=== PATIENT | male | born 1965 | race Caucasian/White ===

== ENCOUNTER 2023-01-26 07:46 | Day surgery (SDC) | payer OTHER ==
[~2023-01-26] VITALS: Ht 208.3 cm; Wt 82.8 kg
[~2023-01-26 07:46] MED LIST: ADVIL200 M1 PO; ALLEGRA ALLERGY60 MG PO; SPIRIVA RESPIMAT4 G1 INH
[2023-01-26 08:03] VITALS: BP 130/86
--- NOTE | 2023-01-26 11:13 | NUR ---
01/26/23 1113 Amanda Kimble 1109-PT TO PACU IN LL POSITION. EYES CLOSED. DOES NOT RESPOND TO VERBAL OR TACTILE STIMULI. BREATHING EASY AND UNLABORED WITH ORAL AIRWAY IN PLACE. SPO2 >95% ON 6 L O2 VIA SIMPLE MASK. 1112-PT CONTINUES TO SLEEP WITH ORAL AIRWAY IN PLACE. DOES NOT RESPOND TO VERBAL OR TACTILE STIMULI. BREATHING EASY AND UNLABORED.SPO2 >95% ON 6 L O2 VIA SIMPLE MASK.
[2023-01-26 12:05] VITALS: BP 135/90
--- NOTE | 2023-01-27 08:27 | OR ---
[facility] [address] [place], [place] [address] Signed DATE OF OPERATION: 01/26/2023 SURGEON: Leyda Peters MD PREOPERATIVE DIAGNOSES: 1. Sister with a history of colonic polyps starting at age 45. 2. Maternal uncle with likely sigmoid colon cancer. POSTOPERATIVE DIAGNOSES: 1. A 4 mm rectal polyps x3 at 8 cm. 2. A 4 mm cecal polyp. 3. A 5 mm sessile polyp in proximal right colon. 4. Minimal internal hemorrhoids. PROCEDURE: Colonoscopy with hot biopsy. ESTIMATED BLOOD LOSS: None. INDICATIONS: Leyda is a 57-year-old gentleman, who decided to establish with his primary care provider. He has been to the office a couple of times. He was asked to see me for his initial screening colonoscopy. He said his sister had a colonoscopy initially at age 45. She was having GI issues at the time after her parents . She had a polyp removed at that time. She went back 10 years later at the age of 54. She was told she had a pre-cancerous polyp removed. She was then asked to come every five years. In addition, the family is quite certain that her maternal uncle of a sigmoid colon cancer that was never diagnosed. Apparently, he was pooping blood and declined medical care. Leyda said he has no lower GI complaints. In the office, I had given him a pamphlet on colonoscopy. He understands the nature of the test. There is risk including, but not limited to gas bloating, crampy abdominal pain, bleeding, perforation requiring surgery, and missed diagnosis. We also reviewed the written instructions for the bowel prep line by line. He also understands the need for IV conscious sedation. He had expressed understanding and wished to proceed. DESCRIPTION OF PROCEDURE: Leyda was seen in the preop area. There was concern by our nursing staff that he was having bigeminy and trigeminy. An EKG was done, when it finally captured he was in sinus rhythm with frequent PVCs. I was in another case. In the meantime, our Electronically Signed By: LEYDA PETERS MD 01/27/23 0827 PATIENT NAME: LEYDA BARNARD OPERATIVE REPORT DATE OF : 63 REPORT #: [id number] PHYSICIAN: LEYDA PETERS MD PCP: ACE PLUNKETT MD REPORT IS CONFIDENTIAL AND NOT TO BE RELEASED WITHOUT AUTHORIZATION [facility] [address] [place] [id number] Signed anesthesia providers had looked at that and reviewed his chart. They felt he would probably be fine today to have his colonoscopy with the help of monitored anesthesia care. He has also had a long history of smoking since 1982. I had reviewed that with Leyda and he needs to followed up with his primary care provider. After this, we had taken Leyda into our endoscopy suite and placed in a left lateral decubitus position. Again, he was having normal sinus rhythm with frequent PVCs. He was given monitored anesthesia care to include propofol per our nurse caption writer. A digital rectal exam was performed and he has good sphincter tone, really no external hemorrhoids or internal masses. His prostate was fairly enlarged, prominent on both sides. After this, the adult colonoscope was introduced, advanced all around into the cecum under direct visualization of camera. It took a little extra sedation and abdominal compression in order to get the camera directly into the cecum itself. His prep was quite excellent to see the appendiceal orifice, ileocecal valve. The scope was then slowly withdrawn. We took the polyp about the base of the cecum with a hot biopsy forceps. He has a 5-7 mm sessile polyp on the fold just distal to the ileocecal valve. We biopsied that and destroyed it completely with hot biopsy forceps. He also had several small polyps at 8 cm in the rectum, removed with hot biopsy forceps. There was no diverticulosis. Upon retroflexion of scope, he has minimal internal hemorrhoid tissue. After this, the gas was suctioned out and colonoscope removed. Leyda tolerated the procedure quite well. RECOMMENDATIONS: I will see Leyda back in my office in 7 to 14 days to review his results. He needs to review the EKG and his long history of smoking with his primary care provider. He might review the prostate exam as well. Leyda Peters MD ALB/MODL /[id number] cc: MD Ace Olivares MD Patient Chart Electronically Signed By: LEYDA PETERS MD 01/27/23 0827 PATIENT NAME: LEYDA BARNARD OPERATIVE REPORT DATE OF : 63 REPORT #: [id number] PHYSICIAN: LEYDA PETERS MD PCP: ACE PLUNKETT MD REPORT IS CONFIDENTIAL AND NOT TO BE RELEASED WITHOUT AUTHORIZATION [address] [address] Signed Copies: LEYDA PETERS MD, ROBERT D DMD ~ Electronically Signed By: LEYDA PETERS MD 01/27/23 0827 PATIENT NAME: LEYDA BARNARD OPERATIVE REPORT DATE OF : 63 REPORT #: [id number] PHYSICIAN: LEYDA PETERS MD PCP: ACE PLUNKETT MD REPORT IS CONFIDENTIAL AND NOT TO BE RELEASED WITHOUT AUTHORIZATION
--- NOTE | 2023-01-27 15:11 | PATH ---
[facility] [address] [place], [place] [address] Signed SPECIMEN(S): A RECTAL POLYP AT 8 CM SPECIMEN(S): B CECUM POLYP SPECIMEN(S): C PROXIMAL ASCENDING/RIGHT COLON POLYP SPECIMEN SOURCE: A. RECTAL POLYP AT 8 CM B. CECUM POLYP C. PROXIMAL ASCENDING/RIGHT COLON POLYP CLINICAL HISTORY: Preop: Family history of polyps and colon CA. Postop: Polyps and enlarged hemorrhoids. FINAL PATHOLOGIC DIAGNOSIS: A. Rectal polyp at 8 cm: - Tubular adenoma (one fragment). - Hyperplastic polyps (multiple fragments). B. Cecum polyp: - Serrated polyp / adenoma (two fragments). C. Proximal ascending / right colon polyp: - Tubular adenoma (two fragments). JVR:[facility]:C2NR MICROSCOPIC EXAMINATION: Histologic sections of all submitted blocks are examined by light microscopy. These findings, together with the gross examination, support the pathologic diagnosis. GROSS DESCRIPTION: A. The specimen, labeled and designated "Mariela, rectal polyp at 8 cm," is received in formalin and consists of four benton soft tissue fragments, ranging from 0.2-0.6 cm. Entirely submitted in (A1). B. The specimen, labeled and designated "Wrightson, cecum polyp," is received in formalin and consists of two benton soft tissue fragments, ranging from 0.1-0.3 cm. Entirely submitted in (B1). C. The specimen, labeled and designated "Wrightson, proximal ascending/right colon polyp," is received in formalin and consists of two benton soft tissue fragments, ranging from 0.2-0.3 cm. Entirely submitted in (C1). VB (under the direct supervision of a pathologist) The Gross Description was prepared using a voice recognition system. The report PATIENT NAME: LEYDA BARNARD PATHOLOGY DATE OF : 63 REPORT #: [id number] PHYSICIAN: MATTHEW PATHOLOGY PCP: KEIRA PLUNKETT MD REPORT IS CONFIDENTIAL AND NOT TO BE RELEASED WITHOUT AUTHORIZATION [facility] [address] [facility] [place], [place] [address] Signed was reviewed for accuracy; however, sound-alike word errors, addition and/or deletions may occur. If there is any question about this report, please contact Client Services. PERFORMING LABORATORY: Technical component was performed by [facility], [address] [place] [address] (CLIA# [id number]). Professional interpretation was performed by [facility] - [facility], [address] [place] [id number] (CLIA#: [id number]). Diagnostician: Kleber Ferguson MD Pathologist Electronically Signed 01/27/2023 Copies: ~ PATIENT NAME: LEYDA BARNARD PATHOLOGY DATE OF : 63 REPORT #: [id number] PHYSICIAN: [facility] PCP: KEIRA PLUNKETT MD REPORT IS CONFIDENTIAL AND NOT TO BE RELEASED WITHOUT AUTHORIZATION
--- NOTE | 2023-01-27 20:58 | EKG ---
[facility] [address] [facility] [place] [address] Signed Sinus rhythm with frequent premature ventricular complexes Otherwise normal ECG Confirmed by Akshat Stoner MD () on 01/27/2023 8:58:26 PM Electronically Signed By: AKSHAT STONER MD 01/27/232057 PATIENT NAME: LEYDA BARNARD Electrocardiogram DATE OF : 63 PHYSICIAN: AKSHAT STONER MD REPORT #: [id number] REPORT IS CONFIDENTIAL AND NOT TO BE RELEASED WITHOUT AUTHORIZATION
== END 2023-01-26 11:55 | disposition home or self-care (01) ==
LOC: OPS 07:46 → DS 07:46 → OPS 09:00
PROVIDERS: ATTEND Colon & Rectal Surgery
PROC: 0DBP8ZZ Excision of Rectum, Via Natural or Artificial Opening Endoscopic (ICD-10-PCS; 2023-01-26)
PROC: 0DBH8ZZ Excision of Cecum, Via Natural or Artificial Opening Endoscopic (ICD-10-PCS; 2023-01-26)
PROC: 0DBK8ZZ Excision of Ascending Colon, Via Natural or Artificial Opening Endoscopic (ICD-10-PCS; principal; 2023-01-26 09:00)
DX: Z12.11 Encounter for screening for malignant neoplasm of colon (principal); Z80.0 Family history of malignant neoplasm of digestive organs; J44.9 Chronic obstructive pulmonary disease, unspecified; F17.200 Nicotine dependence, unspecified, uncomplicated; R05.3 Chronic cough; M19.90 Unspecified osteoarthritis, unspecified site; Z83.71 Family history of colonic polyps; D12.8 Benign neoplasm of rectum; D12.2 Benign neoplasm of ascending colon; K63.5 Polyp of colon
CPT/HCPCS: 00811; 88305; J2250; J2704; J3010